=== PATIENT | male | born 1940 | race Caucasian/White ===

== ENCOUNTER 2017-11-14 15:18 | Inpatient (IN) | payer BC, OTHER ==
--- NOTE | 2017-11-14 15:41 | CPEKG ---
Test Reason : OPEN Blood Pressure : / mmHG Vent. Rate : 069 BPM Atrial Rate : 069 BPM P-R Int : 168 ms QRS Dur : 101 ms QT Int : 462 ms P-R-T Axes : 046 007 019 degrees QTc Int : 495 ms Sinus rhythm Probable left atrial enlargement Borderline prolonged QT interval Confirmed by Beau Cabrera ([id number]) on 11/14/2017 3:41:16 PM Referred By: Confirmed By:Beau Cabrera
[2017-11-14] MEDS ORDERED: NS 500 ML IV ONE (15:53)
--- NOTE | 2017-11-14 16:01 | EDPHY ---
H & P Stated Complaint: Visiting from [place], went to 9000', feeling SOB, QUEEN, dizzy, hypoxia Time Seen by Provider: 11/14/17 15:42 HPI/ROS: CHIEF COMPLAINT: Pre syncope, hypotension, headache HISTORY OF PRESENT ILLNESS: The patient is a 77-year-old man visiting from [place] who is with his family complaining of multiple episodes of presyncope, headache, hypotension and hypoxia. These episodes have been occurring over the last month but more frequently in the last couple of days since visiting [place]. The patient has a history of aortic valve replacement 1 year ago with porcine valve. He also has a history of atrial fibrillation and is on Eliquis and Tikosyn. He has a pacemaker from [facility] that was interrogated 1 month ago. He had only had 2 episodes of atrial fibrillation in the last year. He also reports having history of migraine headaches with vision changes that he thinks began several decades ago when he began taking Effexor. He states that he will often have headaches and vision changes associated with his pre syncopal episodes. He denies chest pain or shortness of breath. He denies leg pain. Typically these symptoms happen when he is standing up or walking. He states that he is very orthostatic and whenever the check his blood pressure while he is standing and is quite low but no one can tell him why. Who presented to an urgent care who found that he was hypoxic at 79% and also had low blood pressure and according to them febrile. Here he is not febrile and is hypertensive. He does have an oxygen saturation of 80% at triage stop. He denies shortness of breath. He denies pulmonary history. Severity: Severe Modifying factors: Positioning REVIEW OF SYSTEMS: Constitutional: denies: chills, fever, recent illness, recent injury EENTM: denies: blurred vision, double vision, nose congestion Respiratory: denies: cough, shortness of breath Cardiac: See HPI denies: chest pain, irregular heart rate, Gastrointestinal/Abdominal: denies: abdominal pain, diarrhea, nausea, vomiting, blood streaked stools Genitourinary: denies: dysuria, frequency, hematuria, pain Musculoskeletal: denies: joint pain, muscle pain Skin: denies: lesions, rash, jaundice, bruising Neurological: denies: headache, numbness, paresthesia, tingling, dizziness, weakness Hematologic/Lymphatic: denies: blood clots, easy bleeding, easy bruising Immunologic/allergic: denies: HIV/AIDS, transplant 10 systems reviewed and negative except as noted EXAM: GENERAL: Well-appearing, well-nourished and in no acute distress. HEAD: Atraumatic, normocephalic. EYES: Pupils equal round and reactive to light, extraocular movements intact, sclera anicteric, conjunctiva are normal. ENT: TMs normal, nares patent, oropharynx clear without exudates. Moist mucous membranes. NECK: Normal range of motion, supple without lymphadenopathy or JVD. LUNGS: Breath sounds clear to auscultation bilaterally and equal. No wheezes rales or rhonchi. HEART: Regular rate and rhythm without murmurs, rubs or gallops. ABDOMEN: Soft, nontender, normoactive bowel sounds. No guarding, no rebound. No masses appreciated. BACK: No CVA tenderness, no spinal tenderness, step-offs or deformities EXTREMITIES: Normal range of motion, no pitting or edema. No clubbing or cyanosis. NEUROLOGICAL: Cranial nerves II through XII grossly intact. Normal speech, normal gait. 5/5 strength, normal movement in all extremities, normal sensation , normal reflexes PSYCH: Normal mood, normal affect. SKIN: Warm, dry, normal turgor, no visible rashes or lesions. Source: Patient Exam Limitations: No limitations - Personal History Current Tetanus/Diphtheria Vaccine: Unsure Current Tetanus Diphtheria and Acellular Pertussis (TDAP): Unsure - Medical/Surgical History Hx Asthma: No Hx Chronic Respiratory Disease: No Hx Diabetes: No Hx Cardiac Disease: Yes Hx Renal Disease: No Hx Cirrhosis: No Hx Alcoholism: No Hx HIV/AIDS: No Hx Splenectomy or Spleen Trauma: No Other PMH: aortic valve replacement 1 year ago, prostatitis, depression, anxiety , pacemaker - Family History Significant Family History: No pertinent family hx - Social History Smoking Status: Never smoked Alcohol Use: None Drug Use: None Constitutional: Initial Vital Signs Temperature (C) 36.8 C 11/14/17 15:25 Heart Rate 78 11/14/17 15:25 Respiratory Rate 16 11/14/17 15:25 Blood Pressure 127/52 H 11/14/17 15:25 O2 Sat (%) 80 L 11/14/17 15:25 O2 Delivery Mode Nasal Cannula O2 (L/minute) 3 Allergies/Adverse Reactions: hydrocodone [From [place]] Allergy (Verified 11/14/17 15:21) Sulfa (Sulfonamide Antibiotics) Allergy (Verified 11/14/17 15:21) Home Medications: Medication Instructions Recorded Acetaminophen [Tylenol ES 500 mg 500 - 1,000 mg PO Q6 PRN 11/14/17 (*)] Apixaban [Eliquis] 5 mg PO BID 11/14/17 Dofetilide [Tikosyn 0.5 MG (*)] 0.5 mg PO BID 11/14/17 Herbals/Supplements -Info Only 1 ea PO DAILY 11/14/17 Melatonin [Melatonin 3 MG (*)] 6 mg PO HS 11/14/17 Phenazopyridine HCl [Azo Standard] 95 mg PO DAILY PRN 11/14/17 Propylene Glycol/Peg 400 [Systane 15 ml OP PRN PRN 11/14/17 0.3-0.4% Eye Drops] Venlafaxine Xr [Effexor Xr 37.5MG 37.5 mg PO HS 11/14/17 (*)] Venlafaxine Xr [Effexor Xr 75MG 75 mg PO DAILY 11/14/17 (*)] Medical Decision Making - Diagnostics EKG Interpretation: An EKG obtained and was read and documented in trace view. Please see trace view for full reading and report. Sinus rhythm, no acute ischemic changes Procedures: I performed a bedside ultrasound with patient's heart. No large effusion appreciated. ED Course/Re-evaluation: 4:30 p.m. the patient is significantly anemic. This would explain all the symptoms he is having neck specially the lightheadedness and orthopnea that cetera. I will order type and screen and transfusion. I performed a rectal exam which is grossly negative but was sent to the lab. The patient states that he has been battling anemia for the last year and had a negative colonoscopy but that he thought his numbers are improving. He does not know exactly what his hematocrit has been. 5:00 p.m. I discussed the case with Dr. Ellen Silva who will admit. Differential Diagnosis: Partial list of the Differential diagnosis considered include but were not limited to; arrhythmia, anemia, electrolyte abnormality, dehydration, acute coronary disease, PE and although unlikely based on the history and physical exam, I also considered dissection, aneurysm. - Data Points Laboratory Results: Laboratory Results 11/14/17 15:29 11/14/17 15:29 11/14/17 11/14/17 11/14/17 16:35 16:35 15:47 WBC RBC Hgb Hct MCV MCH MCHC RDW Plt Count MPV Neut % (Auto) Lymph % (Auto) [place] % (Auto) Eos % (Auto) Baso % (Auto) Nucleat RBC Rel Count Absolute Neuts (auto) Absolute Lymphs (auto) Absolute Monos (auto) Absolute Eos (auto) Absolute Basos (auto) Absolute Nucleated RBC Immature Gran % Immature Gran # Absolute Retic Percent Retic D-Dimer Sodium Potassium Chloride Carbon Dioxide Anion Gap BUN Creatinine Estimated GFR Glucose Calcium Iron TIBC Iron Saturation Total Bilirubin POC Troponin I 0.01 ng/mL ng/mL (0.00-0.08) NT-Pro-B Natriuret Pep Vitamin B12 Folate Stool Occult Bld Scrn NEGATIVE (NEGATIVE) Patient ABO/Rh O NEGATIVE Antibody Screen NEGATIVE Crossmatch IS Only See Detail 11/14/17 11/14/17 11/14/17 15:29 15:29 15:29 WBC RBC Hgb Hct 21.6 % L % (40.0-51.0) MCV MCH MCHC RDW Plt Count MPV Neut % (Auto) Lymph % (Auto) [place] % (Auto) Eos % (Auto) Baso % (Auto) Nucleat RBC Rel Count Absolute Neuts (auto) Absolute Lymphs (auto) Absolute Monos (auto) Absolute Eos (auto) Absolute Basos (auto) Absolute Nucleated RBC Immature Gran % Immature Gran # Absolute Retic 0.050 10^6/uL 10^6/uL (0.050-0.117) Percent Retic 2.57 % % (0.98-2.67) D-Dimer TNP Sodium Potassium Chloride Carbon Dioxide Anion Gap BUN Creatinine Estimated GFR Glucose Calcium Iron 50.0 mcg/dL mcg/dL (49.0-199.0) TIBC 306 ug/dL ug/dL (260-490) Iron Saturation 16 % L % (20-55) Total Bilirubin 0.3 mg/dL mg/dL (0.1-1.4) POC Troponin I NT-Pro-B Natriuret Pep Vitamin B12 366 pg/mL pg/mL (239-931) Folate 15.60 ng/mL ng/mL (2.80 - >20.00) Stool Occult Bld Scrn Patient ABO/Rh Antibody Screen Crossmatch IS Only 11/14/17 11/14/17 11/14/17 15:29 15:29 15:29 WBC 6.56 10^3/uL 10^3/uL (3.80-9.50) RBC 1.99 10^6/uL L 10^6/uL (4.40-6.38) Hgb 7.2 g/dL L g/dL (13.7-17.5) Hct 21.7 % L % (40.0-51.0) MCV 109.0 fL H fL (81.5-99.8) MCH 36.2 pg H pg (27.9-34.1) MCHC 33.2 g/dL g/dL (32.4-36.7) RDW 14.7 % % (11.5-15.2) Plt Count 199 10^3/uL 10^3/uL (150-400) MPV 10.0 fL fL (8.7-11.7) Neut % (Auto) 57.4 % % (39.3-74.2) Lymph % (Auto) 18.9 % % (15.0-45.0) [place] % (Auto) 22.4 % H % (4.5-13.0) Eos % (Auto) 0.2 % L % (0.6-7.6) Baso % (Auto) 0.2 % L % (0.3-1.7) Nucleat RBC Rel Count 0.0 % % (0.0-0.2) Absolute Neuts (auto) 3.77 10^3/uL 10^3/uL (1.70-6.50) Absolute Lymphs (auto) 1.24 10^3/uL 10^3/uL (1.00-3.00) Absolute Monos (auto) 1.47 10^3/uL H 10^3/uL (0.30-0.80) Absolute Eos (auto) 0.01 10^3/uL L 10^3/uL (0.03-0.40) Absolute Basos (auto) 0.01 10^3/uL L 10^3/uL (0.02-0.10) Absolute Nucleated RBC 0.00 10^3/uL 10^3/uL (0-0.01) Immature Gran % 0.9 % % (0.0-1.1) Immature Gran # 0.06 10^3/uL 10^3/uL (0.00-0.10) Absolute Retic Percent Retic D-Dimer Sodium 136 mEq/L mEq/L (135-145) Potassium 4.4 mEq/L mEq/L (3.3-5.0) Chloride 101 mEq/L mEq/L (97-110) Carbon Dioxide 27 mEq/l mEq/l (22-31) Anion Gap 8 mEq/L mEq/L (8-16) BUN 32 mg/dL H mg/dL (7-23) Creatinine 1.4 mg/dL H mg/dL (0.7-1.3) Estimated GFR 49 Glucose 113 mg/dL H mg/dL (70-100) Calcium 8.8 mg/dL mg/dL (8.5-10.4) Iron TIBC Iron Saturation Total Bilirubin POC Troponin I NT-Pro-B Natriuret Pep 2720 pg/mL H pg/mL (0-450) Vitamin B12 Folate Stool Occult Bld Scrn Patient ABO/Rh Antibody Screen Crossmatch IS Only Medications Given: Apixaban (Eliquis) 5 mg PO BID ALPA Stop: 05/13/18 20:59 Last Admin: 11/14/17 21:25 Dose: Not Given Dofetilide (Tikosyn) 0.5 mg PO BID ALPA Stop: 05/13/18 20:59 Last Admin: 11/14/17 21:25 Dose: Not Given Sodium Chloride (Ns) 1,000 mls @ 75 mls/hr IV CONT ALPA Stop: 05/13/18 19:29 Last Admin: 11/14/17 22:19 Dose: 1,000 mls Melatonin (Melatonin) 6 mg PO HS ALPA Stop: 05/13/18 20:59 Last Admin: 11/14/17 21:23 Dose: 6 mg Pantoprazole Sodium (Protonix) 40 mg PO DAILY ALPA Stop: 05/13/18 19:44 Last Admin: 11/14/17 21:23 Dose: 40 mg Venlafaxine HCl (Effexor Xr) 37.5 mg PO HS ALPA Stop: 05/13/18 20:59 Last Admin: 11/14/17 21:25 Dose: Not Given Discontinued Medications Sodium Chloride (Ns) 500 mls @ 0 mls/hr IV EDNOW ONE; Wide Open PRN Reason: Protocol Stop: 11/14/17 15:54 Last Admin: 11/14/17 16:00 Dose: 500 mls Point of Care Test Results: Chemistry 11/14/17 15:47 POC Troponin I 0.01 ng/mL ng/mL (0.00-0.08) Departure - Departure Disposition: [facility] Acute Clinical Impression: Hypoxia Anemia Qualifiers: Anemia type: unspecified type Qualified Code(s): D64.9 - Anemia, unspecified Condition: Fair
[2017-11-14 16:12] LABS: PLATELET COUNT 199 10^3/uL (150-400)
[2017-11-14] MEDS ORDERED: ACETAMINOPHEN 325 MG TAB PO PRN (19:19)
[2017-11-14] MEDS ORDERED: PEG EACHEYE PRN (19:20)
[2017-11-14] MEDS ORDERED: PROPYLENE GLYCOL EACHEYE PRN (19:20)
--- NOTE | 2017-11-14 19:29 | PDGENHP ---
History and Physical - Chief Complaint pre-syncope - History of Present Illness 77 yo male with h/o aortic valve disease, s/p AVR with porcine valve 1 yr ago who developed A fib post-operatively and received a pacemaker in 01/2017, presents to ED with pre-syncope and orthostasis. He is traveling from [place] with his and daughter. He reports a long history of anemia, pre-dating his valve surgery. He underwent EGD and colonoscopy 2 months ago, which revealed one polyp and dorantes's esophagus, but no source of blood loss. He takes an iron supplement. He reports his hematocrit has been around 21 for some time and this has been followed by his physician in [place] while on Eliquis. He denies CP. He does endorse SOB, which became more severe today while at 9K elevation. No h/o melanotic stools or BRBPR. No other bleeding sources. No abdominal pain or urinary symptoms. No fevers. In the ED, his hgb was 7. He was hypoxic to 80% on room air. A unit of prbc's was ordered in the ED and he is admitted for further evaluation. History Information - Allergies/Home Medication List Allergies/Adverse Reactions: hydrocodone [From [place]] Allergy (Verified 11/14/17 15:21) Sulfa (Sulfonamide Antibiotics) Allergy (Verified 11/14/17 15:21) Home Medications: Acetaminophen [Tylenol ES 500 mg (*)] 500 - 1,000 mg PO Q6 PRN 11/14/17 [Last Taken 11/13/17 1000MG] Apixaban [Eliquis] 5 mg PO BID 11/14/17 [Last Taken 11/14/17] Dofetilide [Tikosyn 0.5 MG (*)] 0.5 mg PO BID 11/14/17 [Last Taken 11/14/17] Herbals/Supplements -Info Only 1 ea PO DAILY 11/14/17 [Last Taken Unknown] Melatonin [Melatonin 3 MG (*)] 6 mg PO HS 11/14/17 [Last Taken 11/13/17] Phenazopyridine HCl [Azo Standard] 95 mg PO DAILY PRN 11/14/17 [Last Taken Unknown] Propylene Glycol/Peg 400 [Systane 0.3-0.4% Eye Drops] 15 ml OP PRN PRN 11/14/17 [Last Taken Unknown] Venlafaxine Xr [Effexor Xr 37.5MG (*)] 37.5 mg PO HS 11/14/17 [Last Taken ] Venlafaxine Xr [Effexor Xr 75MG (*)] 75 mg PO DAILY 11/14/17 [Last Taken ] I have personally reviewed and updated: family history, medical history, social history, surgical history - Past Medical History atrial fibrillation Additional medical history: chronic anemia. anticoagulation - Surgical History Additional surgical history: aortic valve replacement, porcine valve. pacemaker - Family History Positive for: non-pertinent - Social History Smoking Status: Never smoked Alcohol Use: None Drug Use: None Additional social history: Lives with in [place], who is present at bedside Review of Systems Review of Systems: ROS: 10pt was reviewed & negative except for what was stated in HPI & below Physical Exam Physical Exam: Temp Pulse Resp BP Pulse Ox 36.7 C 78 20 136/67 H 91 L 11/14/17 18:23 11/14/17 18:23 11/14/17 18:23 11/14/17 18:23 11/14/17 18:23 O2 (L/minute) 2.5 Constitutional: no apparent distress Eyes: PERRL Ears, Nose, Mouth, Throat: moist mucous membranes Cardiovascular: regular rate and rhythym, systolic murmur Respiratory: no respiratory distress, clear to auscultation Gastrointestinal: normoactive bowel sounds, soft, non-tender abdomen Skin: warm Musculoskeletal: full muscle strength Neurologic: AAOx3 Psychiatric: interacting appropriately Lab Data & Imaging Review 11/14/17 15:29 11/14/17 15:29 WBC 6.56 10^3/uL (3.80-9.50) 11/14/17 15:29 RBC 1.99 10^6/uL (4.40-6.38) L 11/14/17 15:29 Hgb 7.2 g/dL (13.7-17.5) L 11/14/17 15:29 Hct 21.7 % (40.0-51.0) L 11/14/17 15:29 MCV 109.0 fL (81.5-99.8) H 11/14/17 15:29 MCH 36.2 pg (27.9-34.1) H 11/14/17 15:29 MCHC 33.2 g/dL (32.4-36.7) 11/14/17 15:29 RDW 14.7 % (11.5-15.2) 11/14/17 15: Plt Count 199 10^3/uL (150-400) 11/14/17 15: MPV 10.0 fL (8.7-11.7) 11/14/17 15:29 Neut % (Auto) 57.4 % (39.3-74.2) 11/14/17 15:29 Lymph % (Auto) 18.9 % (15.0-45.0) 11/14/17 15: [place] % (Auto) 22.4 % (4.5-13.0) H 11/14/17 15: Eos % (Auto) 0.2 % (0.6-7.6) L 11/14/17 15: Baso % (Auto) 0.2 % (0.3-1.7) L 11/14/17 15: Nucleat RBC Rel Count 0.0 % (0.0-0.2) 11/14/17 15:29 Absolute Neuts (auto) 3.77 10^3/uL (1.70-6.50) 11/14/17 15:29 Absolute Lymphs (auto) 1.24 10^3/uL (1.00-3.00) 11/14/17 15:29 Absolute Monos (auto) 1.47 10^3/uL (0.30-0.80) H 11/14/17 15:29 Absolute Eos (auto) 0.01 10^3/uL (0.03-0.40) L 11/14/17 15:29 Absolute Basos (auto) 0.01 10^3/uL (0.02-0.10) L 11/14/17 15:29 Absolute Nucleated RBC 0.00 10^3/uL (0-0.01) 11/14/17 15: Immature Gran % 0.9 % (0.0-1.1) 11/14/17 15: Immature Gran # 0.06 10^3/uL (0.00-0.10) 11/14/17 15:29 Sodium 136 mEq/L (135-145) 09/08/18 15:29 Potassium 4.4 mEq/L (3.3-5.0) 11/14/17 15:29 Chloride 101 mEq/L (97-110) 11/14/17 15:29 Carbon Dioxide 27 mEq/l (22-31) 11/14/17 15:29 Anion Gap 8 mEq/L (8-16) 11/14/17 15:29 BUN 32 mg/dL (7-23) H 11/14/17 15:29 Creatinine 1.4 mg/dL (0.7-1.3) H 11/14/17 15:29 Estimated GFR 49 11/14/17 15:29 Glucose 113 mg/dL (70-100) H 11/14/17 15:29 Calcium 8.8 mg/dL (8.5-10.4) 11/14/17 15:29 POC Troponin I 0.01 ng/mL (0.00-0.08) 11/14/17 15:47 NT-Pro-B Natriuret Pep 2720 pg/mL (0-450) H 11/14/17 15:29 Stool Occult Bld Scrn NEGATIVE (NEGATIVE) 11/14/17 16:35 Patient ABO/Rh O NEGATIVE 11/14/17 16:35 Antibody Screen NEGATIVE 11/14/17 16:35 Crossmatch IS Only See Detail 11/14/17 16:35 Visualized and Interpreted EKG results: Yes EKG Interpretation: Positive for: normal sinsus rhythm Assessment & Plan Assessment: Anemia - Chronic, macrocytic. Reportedly his hgb has been ~7 for several months and anemia dates back years. Suspect he became more symptomatic at elevation, was up to 9K feet today. No clear etiology found, but he is empirically on iron. He had EGD and c-scope 2 months ago which was negative for a source of bleed, though Dorantes's esophagus was noted. Heme neg in ED. -prbc's now, recheck h&h in am -send B12, folate and iron studies -send retic count and bilirubin, consider hemolysis with valve disease -as above EGD and c-scope neg, may warrant capsule endoscopy as outpt back in [place] Orthostatic hypotension / pre-syncope - likely due to above. -PRBC's tonight and recheck orthostatics in am -may need another unit if still orthostatic AVR - porcine valve ~1 yr ago. -check echo A fib with pacemaker - currently in NSR, on eliquis and tikosyn. -continue eliquis as there is no evidence of active bleeding. -pacemaker interrogated, no arrhythmias, functioning properly per tech Hypoxemia - 80% on room air on arrival. Could be related to anemia. Recent travel noted, but on Eliquis, making PE less likely. -check CXR and d dimer VIVIANA - unknown baseline Cr, but pt denies h/o CKD. Suspect pre-renal with azotemia. -prbc's and gentle NS overnight, recheck Cr in am Dorantes's esophagus - will start PPI Full code Dispo - obs
[2017-11-14] MEDS ORDERED: NS 1,000 ML IV SCH (19:30)
[2017-11-14] MEDS: MELATONIN 3 MG TAB PO SCH (21:23)
[2017-11-14] MEDS: PANTOPRAZOLE SODIUM 40 MG TAB PO SCH (21:23)
[2017-11-14] MEDS: DOFETILIDE 0.5 MG CAP PO SCH (21:25)
[2017-11-14] MEDS: VENLAFAXINE XR 37.5 MG CAP PO SCH (21:25)
[2017-11-14] MEDS: APIXABAN 5 MG TAB PO SCH (21:25)
[2017-11-14] MEDS ORDERED: FUROSEMIDE 20 MG/2 ML VIAL IVP ONE (23:12)
[2017-11-15] MEDS ORDERED: FUROSEMIDE 20 MG/2 ML VIAL IVP ONE ×2 (07:00→10:53)
[2017-11-15] MEDS: PANTOPRAZOLE SODIUM 40 MG TAB PO SCH (09:55)
[2017-11-15] MEDS: APIXABAN 5 MG TAB PO SCH ×2 (09:55→21:04)
[2017-11-15] MEDS: DOFETILIDE 0.5 MG CAP PO SCH ×2 (09:55→21:03)
[2017-11-15] MEDS: VENLAFAXINE XR 75 MG CAP PO SCH (10:06)
[2017-11-15] MEDS ORDERED: METOPROLOL TARTRATE 5 MG/5 ML INJ IVP ONE (10:53)
--- NOTE | 2017-11-15 12:16 | ECHO ---
[email or web address] [address] [address] Main: [phone] Fax: Transthoracic Echocardiogram Name: SIGRID RAUSCH MR#: [id number] Study Date: 11/15/2017 Study Time: 08:51 AM Date of : 1940 Age: 77 year(s) Height: 177.8 cm (70 in.) Weight: 88.45 kg (195 lb.) BSA: 2.06 m2 Gender: Male Examination: Echo Indication: h/o AVR, anemia Image Quality: Adequate Contrast: Requested by: Ellen Silva BP: 136 mmHg/64 mmHg Heart Rate: Rhythm: Indication: h/o AVR, anemia Procedure Staff Clinical Genetics Laboratory Chief: Nora Dueñas [facility] Reading Physician: Mendoza Davis MD Requesting Provider: Conclusions: Mild to moderate LVH. EF is 70 %. No regional wall motion abnormality. There is a pacemaker lead noted in the right ventricle. The left atrium is moderately dilated. Trivial to mild mitral regurgitation. No mitral stenosis is present. S/P AVR, no information on size and type from patient, surgery performed in [place] 10/2016. Mean/max pressure gradient across the valve 18/33 mmHg, max velcocity 2.9m/s. There is no obvious aortic insufficiency. The tricuspid valve is normal in appearance and function. Right ventricular systolic pressure measures 50mmHg. The pulmonary artery pressure is moderately increased. There is no previous echocardiogram for comparison. Measurements: Chambers Valvular Assessment AV/MV Valvular Assessment TV/PV Normal Normal Normal Name Value Range Name Value Range Name Value Range Ao Zuleima (MM): 3.8 cm (2.2 cm-3.7 AV Vmax: 2.89 m/s (1 m/s-1.7 TR Vmax: 3.34 mm/s ( - ) cm) m/s) TR PGmax: 45 mmHg ( - ) IVSd (2D): 1.3 cm (0.6 cm-1.1 AV maxP mmHg ( - ) syst. PAP: 50 mmHg ( - ) cm) AV meanP mmHg ( - ) PV Vmax: 1.33 m/s (0.6 m/s-0.9 LVDd (2D): 5.4 cm (4.2 cm-5.9 MV E Vmax: 0.71 m/s ( - ) m/s) cm) MV A Vmax: 0.38 m/s ( - ) PV PGmax: 7 mmHg ( - ) LVDs (2D): 3.5 cm (2.1 cm-4 MV E/A: 1.87 ( - ) cm) LVPWd (2D): 1.3 cm (0.6 cm-1 cm) LVEF (BP): 70 % (>=55 %) Patient: SIGRID RAUSCH Study Date: 11/15/2017 Page 1 of 2 08:51 AM RVDd(2D): 3.7 cm (1.9 cm-3.8 cmmm) Continued Measurements: Chambers Valvular Assessment AV/MV Valvular Assessment TV/PV Name Value Name Value Name Value LADs Lon.2 cm MV DecTime: 194 m/s CVP (est.): 5 mmHg LA Area: 26.9 cm2 MV E' Septal: 0.08 m/s LA Volume: 96 ml MV E/E' Septal: 8.40 LA Volume Index: 46.6 ml/m2 MV E/E' Lateral: 7.40 TAPSE: 2.0 cm RA Area: 13.3 cm2 Additional Vessels Name Value Ao Ascendin.6 cm Findings: Left Ventricle: Normal size left ventricle. Mild to moderate LVH. Normal global systolic LV function. EF is 70 %. No regional wall motion abnormality. Grade 2 diastolic dysfunction (pseudonormalized LV filling pattern). Right Ventricle: Normal size right ventricle. Normal RV function. There is a pacemaker lead noted in the right ventricle. Left Atrium: The left atrium is moderately dilated. Right Atrium: The right atrium is normal in size. There is a pacemaker lead noted in the right atrium. Mitral Valve: The mitral valve is normal in appearance and function. Trivial to mild mitral regurgitation. No mitral stenosis is present. Aortic Valve: S/P AVR, no information on size and type from patient, surgery performed in [place] 10/2016. Mean/max pressure gradient across the valve 18/33 mmHg, max velcocity 2.9m/s. There is no obvious aortic insufficiency. Tricuspid Valve: The tricuspid valve is normal in appearance and function. Mild tricuspid regurgitation is present. Right ventricular systolic pressure measures 50mmHg. The pulmonary artery pressure is moderately increased. Aorta: Normal size aortic root measuring 3.8 cm. Normal size ascending aorta measuring 3.6 cm. IVC: The IVC is normal sized. Pericardium: No pericardial effusion. (No Signature Object) Patient: SIGRID RAUSCH Study Date: 11/15/2017 Page 2 of 2 08:51 AM [id number]
--- NOTE | 2017-11-15 14:54 | HOSPPROG ---
Hospitalist Progress Note Assessment/Plan: Subjective Follow-up on hypoxia and atrial fibrillation. Patient presented to with normal sinus rhythm but did concur switch over to atrial fibrillation approximately 9 o'clock this morning. His rate has been mildly elevated into the 120s but mostly controlled less than 110. He states that he is visiting from [place] to visit his daughter and did take a Dr. Up to 9000 ft. It shortly thereafter when he started to become very short of breath. We reviewed his chest x-ray which did show evidence of pulmonary edema. I have also reviewed the case with Dr. Mendoza Davis and discussed that this could be related to high altitude pulmonary edema. Reviewed the issue of the atrial fibrillation as patient states he has been normal sinus rhythm for at at least over a year. For now we discussed that we would continue to observe him but cardioversion could be considered if he becomes unstable or rate cannot be controlled. Objective Vital signs as detailed below Exam General-patient appears mildly anxious but awake alert conversant no acute distress Heart-irregular tachycardic murmur consistent with aortic valve replacement Lungs-clear auscultation with no major crackles at the lung bases or increase in respiratory effort Abdomen-soft nontender nondistended -no Amaya catheter in place Extremities-no significant pitting edema Labs as detailed below Assessment and plan Atrial fibrillation with rapid ventricular response-this developed this morning approximately 9:00 a.m. I have ordered IV metoprolol at 5 mg. Continue with Tikosyn. I reviewed the case as well with Dr. Mendoza Davis for now will continue with telemetry monitoring. It was felt that if his heart rate could be controlled that he likely could be discharged from the hospital. He is already on anticoagulation. He has a flight back to floor scheduled for this coming Thursday. Acute hypoxic respiratory failure-I attempted to wean him off of oxygen today but unable. Likely secondary to pulmonary edema noted on chest imaging. This may be related to being at a high altitude during his visit to [place] from [place]. I have ordered an additional dose of Lasix 20 mg IV to be given today. He did receive a dose as well last evening. Hopefully we can wean him off of oxygen prior to discharge. Acute kidney injury-mildly elevated creatinine 1.4. This normalized today. Anemia-patient apparently has a chronic macrocytic anemia. He did receive a unit of blood with an appropriate rise in his hemoglobin today. Hemoccult is negative. He has had recent endoscopy and colonoscopy as well. His bilirubin is within normal limits so I think a hemolytic process less likely. I would recommend continued follow-up with his doctors in [place] on this issue. Aortic valve replacement-porcine. This was done in 2017. Elder's esophagus-continue proton pump inhibitor. DVT prophylaxis-patient is anticoagulated. Disposition-likely could be discharged if good rate control and hopefully can be weaned off of oxygen before discharge from the hospital. He has a scheduled flight to leave [place] and returned to [place] this coming Thursday. Objective: Vital Signs Temp Pulse Resp BP Pulse Ox 36.7 C 105 H 20 81/51 L 93 11/15/17 07:49 11/15/17 12:15 11/15/17 07:49 11/15/17 12:15 11/15/17 07:49 Laboratory Results 11/15/17 03:25 11/15/17 03:25 11/14/17 11/15/17 11/16/17 05:59 05:59 05:59 Intake Total 1050 Output Total 1300 150 Balance -250 -150 ICD10 Worksheet Patient Problems: Problems Problem Status Onset Anemia Acute Hypoxia Acute
[2017-11-15] MEDS ORDERED: NS 250 ML IV ONE (15:25)
--- NOTE | 2017-11-15 15:37 | ASMTCMCOM ---
CM Note CM Note Notes: Reviewed chart regarding discharge plan of care, pt's progress. Pt admitted for pre-syncopal event, anemia, new onset afib, acute heart failure and acute pulmonary HTN. Pt is visiting from [place] and is scheduled to return home on Thursday11/19/17. He is accompanied by his family. Per PCU rounds, pt will likely discharge Thu or in lieu of flight on Thu. Anticipate pt will discharge independently with family support and no needs. CM will continue to follow. Discharge Plan: Home independently Date Signed: 11/15/2017 03:37 PM Electronically Signed By:Day Santoro RN
[2017-11-15] MEDS: VENLAFAXINE XR 37.5 MG CAP PO SCH (21:04)
[2017-11-15] MEDS: ZOLPIDEM TARTRATE 5 MG TAB PO PRN (22:49)
[2017-11-15] MEDS: MELATONIN 3 MG TAB PO SCH (22:49)
--- NOTE | 2017-11-16 09:40 | PDMN ---
Medical Necessity Medical necessity: Change to IP, as of 11/15/17, per MD & MCG [id number]; los >2 mn for ongoing management of AFIB w/RVR w/hypotension (BP 79/61), acute hypoxic respiratory failure (83% on RA) likely r/t pulmonary edema, acute kidney injury & anemia; requiring further monitoring & IV Lasix/med management; hx AFIB on AC , AVR, pacemaker
[2017-11-16] MEDS: VENLAFAXINE XR 75 MG CAP PO SCH (10:02)
[2017-11-16] MEDS: APIXABAN 5 MG TAB PO SCH ×2 (10:02→21:55)
[2017-11-16] MEDS: PANTOPRAZOLE SODIUM 40 MG TAB PO SCH (10:02)
[2017-11-16] MEDS: DOFETILIDE 0.5 MG CAP PO SCH ×2 (10:02→21:55)
[2017-11-16] MEDS ORDERED: FUROSEMIDE 40 MG/4 ML VIAL IVP ONE (16:49)
--- NOTE | 2017-11-16 20:21 | HOSPPROG ---
Hospitalist Progress Note Assessment/Plan: * Anemia - macrocytic -longstanding anemia but he has never seen a specialty development consultant -B12 okay, recent EGD/colonoscopy negative -s/p transfusion * Hypoxia - hopefully due to pulmonary edema -another dose IV lasix * Recent AVR - bioprosthetic -mean gradient on ECHO 18 * Afib (s/p PCM) with RVR - now back to NSR -continue Tikosyn -on Eliquis * Acute on chronic diastolic CHF -IV lasix * Elder's -continue PPI * Elevated right hemidiaphragm -SNIFF test with only minimal decreased function Subjective: NO complaints Objective: Vital Signs Temp Pulse Resp BP Pulse Ox 37.1 C 62 20 118/70 92 11/16/17 19:41 11/16/17 19:41 11/16/17 19:41 11/16/17 19:41 11/16/17 19:41 11/15/17 11/16/17 11/17/17 05:59 05:59 05:59 Intake Total 150 1200 Output Total 2650 700 Balance -2500 500 CXR viewed, my personal interpretation is - mild CHF, elevated right hemidiaphragm ECHO - aortic valve mean gradient 18 Laboratory Tests 11/14/17 11/14/17 11/15/17 15:29 15:29 03:25 Hct 21.7 L 21.6 L 26.1 L - Physical Exam Constitutional: no apparent distress, appears nourished, not in pain Cardiovascular: regular rate and rhythym, no murmur, rub, or gallop Respiratory: no respiratory distress, no rales or rhonchi, clear to auscultation Gastrointestinal: normoactive bowel sounds, soft, non-tender abdomen, no palpable masses Skin: no rashes or abrasions, no fluctuance, no induration Neurologic: AAOx3, sensation intact bilaterally Psychiatric: interacting appropriately, not anxious, not encephalopathic, thought process linear ICD10 Worksheet Patient Problems: Problems Problem Status Onset Anemia Acute Hypoxia Acute
[2017-11-16] MEDS: ZOLPIDEM TARTRATE 5 MG TAB PO PRN (21:54)
[2017-11-16] MEDS: VENLAFAXINE XR 37.5 MG CAP PO SCH (21:54)
[2017-11-16] MEDS: MELATONIN 3 MG TAB PO SCH (21:54)
[2017-11-17 05:23] LABS: PLATELET COUNT 199 10^3/uL (150-400)
--- NOTE | 2017-11-17 10:04 | PDHOMEO2F ---
Home Oxygen Face to Face Home Orders: I certify that a physician or a nurse practitioner or physician's accounting administrative assistant has had a [id number] encounter with this patient on the date of this order due to the diagnosis listed, which relates to the primary reason the patient requires home oxygen. Alternative treatments have been tried, or considered, and deemed ineffective. It is anticipated that supplemental oxygen will result in improvement with treatment. Home oxygen qualifying diagnosis: CHF SpO2 on room air (%): 84 Frequency of home oxygen needed: continuous Home oxygen liters per minute: 2 Home oxygen delivery device: nasal cannula Concentrator: Yes E-tanks for mobility and back up: Yes If ordering portable O2, is the patient mobile in the home?: Yes I certify that, based on these findings, the home oxygen is medically necessary for this patient for the following length of time. Length of time home oxygen needed: 1 week
[2017-11-17] MEDS: PANTOPRAZOLE SODIUM 40 MG TAB PO SCH (10:51)
[2017-11-17] MEDS: APIXABAN 5 MG TAB PO SCH (10:51)
[2017-11-17] MEDS: VENLAFAXINE XR 75 MG CAP PO SCH (10:51)
[2017-11-17] MEDS: DOFETILIDE 0.5 MG CAP PO SCH (10:51)
[2017-11-17 11:58] VITALS: BP 78/46
--- NOTE | 2017-11-17 16:50 | ASDISCHSUM ---
Discharge Information Plan Status:Home with No Needs Medically Cleared to Leave:11/17/2017 Discharge Date:11/17/2017 CM D/C Disposition:Home, Routine, Self-Care ADT D/C Disposition:Home, Routine, Self-Care Projected Discharge Date:11/17/2017 Transportation at D/C: Discharge Delay Reason: Follow-Up Date:11/17/2017 Discharge Slot: Final Diagnosis: Placement Information Patient Contact Information Contact Name:JANEY Relationship: Address:[address] Work Phone: City:[place] Alternate Phone: State/Zip Code:[place] [address] Email: Financial Information Financial Class:Medicare Advantage Plans Primary Plan Desc:[employer] MEDICARE ADV Primary Plan Number:[id number] Secondary Plan Desc: Secondary Plan Number: Assessment Information LACE LACE Length of stay for Answers: 2 days current admission Acuity / Level of Answers: Yes Care: Did the patient have an inpatient admission? Comorbidities - select Answers: Congestive heart failure all that apply Other Notes: Aortic valve dx, afib, PPM # of Emergency department Answers: 1-2 visits in the last 6 months Score: 9 Date Signed: 11/17/2017 04:48 PM Electronically Signed By:Karen Lu RN [facility] Progress Note CM Note CM Note Notes: Reviewed chart regarding discharge plan of care, pt's progress. Pt admitted for pre-syncopal event, anemia, new onset afib, acute heart failure and acute pulmonary HTN. Pt is visiting from [place] and is scheduled to return home on Thursday11/19/17. He is accompanied by his family. Per PCU rounds, pt will likely discharge Thu or in lieu of flight on Thu. Anticipate pt will discharge independently with family support and no needs. CM will continue to follow. Discharge Plan: Home independently Date Signed: 11/15/2017 03:37 PM Electronically Signed By:Day Santoro RN Case Management Discharge Plan Note Case Management Discharge Discharge Order Complete? Answers: Yes Patient to Obtain Answers: Independently Medications Transportation Arranged Answers: Family/Friends Family Notified Answers: Yes Notes: in room Discharge Comments Notes: 11/17/2017 Case Management Note Pt to discharge to hotel with and fly home to [place]. picked up O2 as prescribed. No further case management d/c needs identified. Date Signed: 11/17/2017 04:49 PM Electronically Signed By:Karen Lu RN Intervention Information
--- NOTE | 2017-11-17 19:16 | GDS ---
DISCHARGE DIAGNOSES: 1. Macrocytic anemia. 2. Acute on chronic diastolic congestive heart failure. 3. Recent bioprosthetic aortic valve replacement. 4. Atrial fibrillation with pacemaker, with rapid ventricular response. 5. Elder's esophagus. 6. Elevated right hemidiaphragm. 7. Chronic orthostatic hypotension. HISTORY: The patient is a 77-year-old male visiting from [place]. He recently had a bioprosthetic a ortic valve replacement but was doing well and cleared by his physicians to travel to [place]. He w as visiting his daughter. They went up to 9000 feet to do some sightseeing, and he became extremely short of breath and came to the emergency room. Upon presentation, he was found to be severely anemi c with a hematocrit of 21.7. He reports a known longstanding history of anemia, and this is his base line value. I think this is quite low and clearly the culprit for his lack of ability to tolerate hi gh altitude. He has recently had EGD and colonoscopy that were negative. His iron studies were nega tive. Given his MCV of 109, I think this is likely not an iron deficiency issue. His B12 is normal. He got blood transfusions and felt much better. He has never seen a file conversion operator, which I recommen ded they do upon arriving back to [place]. He also was hypoxic throughout this hospitalization. He has some pulmonary edema, and we did diurese him but continues to have hypoxia despite this. Echocardiogram showed his bioprosthetic aortic valv e replacement looking pretty good. He does require home oxygen upon discharge, and arrangements were made for him to fly home with it. Upon arrival back to low altitude, he can have oxygen saturations rechecked to see if hypoxia is persistent, or it may resolve. During this hospitalization, he went to atrial fibrillation with a rapid ventricular response. He wa s given some metoprolol. He converted back to a normal sinus rhythm. He will discharge on his usual Tikosyn and Eliquis. Incidentally noted on his chest x-ray is an elevated right hemidiaphragm. Sniff test, however, showe d only minimal decreased function, and his right diaphragm is not paralyzed. He should do deep breat [place] exercises, and this may help his hypoxemia. DISCHARGE MEDICATIONS: Please see computerized record for full detailed list. There are no new medi cations given at time of hospital discharge. ADDITIONAL DISCHARGE INSTRUCTIONS: 1. Consult Hematology as an outpatient regarding anemia workup. 2. Conservative measures for orthostasis were recommended, including compression hose and slowly ris ing from a seated position. 3. Recheck oxygen saturations on room air upon arrival back to [place]. Greater than 30 minutes' time was spent arranging this discharge. Patient was seen and examined by karen thomas on day of discharge. /[id number]/MODL
== END 2017-11-17 17:13 | disposition home or self-care (01) | DRG 811 ==
LOC: F2W 18:15 → OBSVTOIN 11-15 16:32
PROVIDERS: ADMIT Hospitalist; ATTEND Hospitalist
PROC: 30233N1 Transfusion of Nonautologous Red Blood Cells into Peripheral Vein, Percutaneous Approach (ICD-10-PCS; principal; 2017-11-14)
DX: D53.9 Nutritional anemia, unspecified (principal); I50.33 Acute on chronic diastolic (congestive) heart failure; R09.02 Hypoxemia; E86.9 Volume depletion, unspecified; I95.1 Orthostatic hypotension; K22.70 Barrett's esophagus without dysplasia; J98.6 Disorders of diaphragm; Z95.3 Presence of xenogenic heart valve; Z95.0 Presence of cardiac pacemaker; Z79.01 Long term (current) use of anticoagulants
CPT/HCPCS: 82607-90; 84484-PO; 96374; 97161-GP; 97165-GO; 97535-GO; G0378; G8987-GO-CI; G8988-GO-CI; G8989-GO-CI; J1940; P9016